=== PATIENT | male | born 1955 | race Caucasian/White ===

== ENCOUNTER 2016-09-25 08:18 | Emergency (ER) | payer OTHER ==
[2016-09-25] MEDS ORDERED: SODIUM CHLORIDE 0.9% 3,000 ML ONE (09:07)
[2016-09-25] MEDS ORDERED: ONDANSETRON 4 MG VIAL ONE (09:07)
[2016-09-25] MEDS ORDERED: Meclizine HCl 25 MG TAB ONE ×2 (09:07→11:13)
== END 2016-09-25 11:46 | disposition home or self-care (01) ==
LOC: ER 08:18
DX: R42 Dizziness and giddiness (principal); H65.03 Acute serous otitis media, bilateral; H61.23 Impacted cerumen, bilateral
CPT/HCPCS: 36415; 70450; 71010; 80053; 82553; 83690; 83880; 84484; 85025; 93005; 96361; 96374